=== PATIENT | male | born 1980 | race Caucasian/White ===

== ENCOUNTER 2018-01-25 13:33 | Emergency (ER) | payer OTHER ==
[~2018-01-25] VITALS: Ht 167.6 cm; Wt 80.3 kg
[2018-01-25 13:40] VITALS: Ht 167.6 cm; Wt 80.3 kg
[2018-01-25 15:35] VITALS: BP 130/74
== END 2018-01-25 15:35 | disposition home or self-care (01) ==
LOC: ED 13:33
DX: S20.212A Contusion of left front wall of thorax, initial encounter (principal); W01.0XXA Fall on same level from slipping, tripping and stumbling without subsequent striking against object, initial encounter; Y93.89 Activity, other specified; Y92.89 Other specified places as the place of occurrence of the external cause; Y99.8 Other external cause status